=== PATIENT | female | born 1930 | race Caucasian/White ===

== ENCOUNTER 2016-09-14 09:45 | Outpatient (RCR) | payer OTHER ==
[~2016-09-14 09:45] MED LIST: ADVIL200 MG PO; ALEVE 220MG220 MG PO; ALIGN; ASPIRIN 81M81 MG/TA2 PO; BENICAR5 MG PO; BENTYL 10MG10 MG/CAP PO; CALCIUM500 MG PO; CARDI-OMEGA1000 MG PO; CEFPODOXIME PR100 MG PO; COZAAR 25MG25 MG/TAB PO; COZAAR 50MG50 MG/TAB PO; CRANBERRY1 CAP PO; DUO-KAPS1 CAP PO; ESTRACE0.1 MG/GM VG; EYE DROP TEARS15 ML OP; FISH OIL1000 MG PO; FLEXERIL 1010 MG/TAB PO; HCTZ12.5TAB PO; IMODIUM 2MG CAPS2 MG PO; LEXAPRO 10MG10 MG PO; METAMUCIL1 PDR PO; NATURE'S BLEND100 M2 PO; NITROSTAT0.4 MG/TAB SL; NORVASC2.5 MG PO; PRILOSEC 20MG20 MG PO; QUESTRAN4 GM/9 GM PO; STOOL SOFTENER100 M2 PO; SYNTHROID0.1 MG/TAB PO; SYSTANE 0.4%-0.1 SOL OP; TENORMIN 2525 MG/TAB PO; TYLENOL 325MG325 MG PO; VITAMIN B-6100 MG PO; ZOCOR 20MG20 MG PO; [UNRECOGNIZED DRUG - OTHER] NS
== END 2016-09-17 15:30 | disposition home or self-care (01) ==
LOC: MKS.ESL.PT 09:45
DX: M50.30 Other cervical disc degeneration, unspecified cervical region (principal); M62.830 Muscle spasm of back
CPT/HCPCS: G0283-GP; G8990-GP; G8991-GP; G8992-GP

== ENCOUNTER → 2016-12-20 | Outpatient (CLI) | payer MEDICARE | LOC: MC.RAD 12-14 09:20 | DX: Z12.31 Encounter for screening mammogram for malignant neoplasm of breast (principal) ==

== ENCOUNTER 2017-10-08 15:14 | Inpatient (IN) | payer OTHER ==
[~2017-10-08] VITALS: Ht 167.6 cm; Wt 72.0 kg
[~2017-10-08 15:14] MED LIST changes: +NORVASC 5MG5 MG/TAB PO; -NORVASC2.5 MG PO
[2017-10-08 15:46] LABS: BASO % 0.5 % (0.0-2.0); EOS # 0.1 (0.0-0.7); EOS % 1.5 % (0-4.0); GRAN # 5.8 (1.4-6.5); GRAN % 75.2 % (42.2-75.2); HEMATOCRIT 41.8 % (37.0-47.0); HEMOGLOBIN 14.4 g/dl (12.5-16.0); LYMPH # 1.1 (1.2-3.4); LYMPH % 14.1 % (20.0-51.0); MEAN CELL VOLUME 91 fl (80.0-100.0); MEAN CORPUSCULAR HEMOGLOBIN 31 pg (27.0-31.0); MEAN CORPUSCULAR HGB CONC 34 g/dl (33.0-37.0); MEAN PLATELET VOLUME 8.6 fl (7.4-10.4); MONO # 0.6 (0.1-0.6); MONO % 7.7 % (1.7-9.3); PLATELET COUNT 231 K/mm3 (130-400); RED BLOOD COUNT 4.59 M/mm3 (4.10-5.30); REDCELL DISTRIBUTION WIDTH-CV 13.3 % (11.5-14.5)
[2017-10-08 15:57] LABS: ALBUMIN 4.7 gm/dL (3.5-5.0); BILIRUBIN,TOTAL 0.4 mg/dL (0.0-1.0); CALCIUM 9.7 mg/dL (8.4-10.2); CREATININE, serum 0.8 mg/dL (0.52-1.25); POTASSIUM 4.3 mmol/L (3.4-5.0); TOTAL PROTEIN 7.4 gm/dL (6.4-8.2)
[2017-10-08] MEDS ORDERED: CRANBERRY450 MG PO (16:13)
[2017-10-08] MEDS ORDERED: TYLENOL 500MG500 MG PO (16:14)
[2017-10-08] MEDS ORDERED: MULTI VITAMINS1 TAB PO (16:14)
[2017-10-08] MEDS ORDERED: ADVIL200 MG PO (16:16)
[2017-10-08] MEDS ORDERED: LUTEIN20 M1 PO (16:17)
[2017-10-08] MEDS ORDERED: B-121000 MCG PO (16:18)
[2017-10-08] MEDS ORDERED: COZAAR 25MG25 MG/TAB PO (16:19)
[2017-10-08] MEDS ORDERED: REFRESH OPTIVE10 M2 OU (16:21)
[2017-10-08] MEDS ORDERED: FLAREX 5 ML5 M1 OU (16:21)
[2017-10-08 18:15] VITALS: BP 166/66; PULSE 65; TEMP 97.8
[2017-10-08 18:45] LABS: PROTHROMBIN TIME 11.6 SECONDS (9.7-12.8)
[2017-10-08 18:55] LABS: PRE ALBUMIN 38.5 mg/dL (17.6-36.0)
[2017-10-08 19:20] LABS: THYROID STIMULATING HORMONE 0.458 uIU/mL (0.465-4.680)
[2017-10-08 20:00] VITALS: BP 130/60; BP 144/79; PULSE 66; PULSE 84; TEMP 97.9; TEMP 99.7
[2017-10-08 22:44] LABS: COLLECTION METHOD CLEAN CATCH
[2017-10-08 22:50] LABS: MUCOUS Present /lpf; PH 5 (5-8); SQUAMOUS EPITHELIAL 0-2 /hpf; URINE APPEARANCE Hazy; URINE BACTERIA None Seen /hpf; URINE BILIRUBIN Negative (NEGATIVE); URINE BLOOD Negative (NEGATIVE); URINE COLOR Yellow; URINE GLUCOSE 3+ (NEGATIVE); URINE KETONE Negative (NEGATIVE); URINE LEUKOCYTE ESTERASE Trace (NEGATIVE); URINE NITRATE Negative (NEGATIVE); URINE PROTEIN(semi-quant) Negative (NEGATIVE); URINE UROBILINOGEN Negative (NEGATIVE)
[2017-10-09 00:25] VITALS: BP 136/69; PULSE 70; TEMP 98.1
[2017-10-09 05:00] VITALS: BP 98/41; PULSE 81; TEMP 98
[2017-10-09 08:00] VITALS: BP 115/50; PULSE 69; TEMP 98
[2017-10-09 13:28] VITALS: BP 97/40; PULSE 68; TEMP 98
[2017-10-09 17:30] VITALS: BP 108/43; PULSE 58; TEMP 98.4
[2017-10-09 22:14] VITALS: BP 115/46; PULSE 73; TEMP 99.4
[2017-10-10] VITALS (11 sets, daily range): BP systolic 97–138; BP diastolic 40–74; PULSE 65–79; TEMP 97.2–98.1
[2017-10-10 06:43] LABS: BASO % 0.5 % (0.0-2.0); EOS # 0.3 (0.0-0.7); EOS % 4.6 % (0-4.0); GRAN # 4.2 (1.4-6.5); GRAN % 69.3 % (42.2-75.2); LYMPH # 0.8 (1.2-3.4); LYMPH % 13.7 % (20.0-51.0); MEAN CELL VOLUME 92 fl (80.0-100.0); MEAN CORPUSCULAR HGB CONC 34 g/dl (33.0-37.0); MEAN PLATELET VOLUME 8.9 fl (7.4-10.4); MONO # 0.7 (0.1-0.6); MONO % 11.6 % (1.7-9.3); PLATELET COUNT 158 K/mm3 (130-400); RED BLOOD COUNT 3.23 M/mm3 (4.10-5.30); REDCELL DISTRIBUTION WIDTH-CV 14.1 % (11.5-14.5)
[2017-10-10 06:51] LABS: HEMATOCRIT 29.8 % (37.0-47.0); HEMOGLOBIN 10.1 g/dl (12.5-16.0); MEAN CORPUSCULAR HEMOGLOBIN 31 pg (27.0-31.0)
[2017-10-10 07:00] LABS: CALCIUM 8.1 mg/dL (8.4-10.2); CREATININE, serum 0.66 mg/dL (0.52-1.25); POTASSIUM 4.3 mmol/L (3.4-5.0)
[2017-10-11] VITALS (8 sets, daily range): BP systolic 125–166; BP diastolic 43–63; PULSE 67–78; TEMP 97.3–98.3
[2017-10-11 06:23] LABS: BASO % 0.2 % (0.0-2.0); GRAN # 8.9 (1.4-6.5); LYMPH # 0.4 (1.2-3.4); LYMPH % 4.1 % (20.0-51.0); MEAN CELL VOLUME 92 fl (80.0-100.0); MEAN CORPUSCULAR HGB CONC 34 g/dl (33.0-37.0); MEAN PLATELET VOLUME 8.7 fl (7.4-10.4); MONO # 0.6 (0.1-0.6); MONO % 6.1 % (1.7-9.3); PLATELET COUNT 144 K/mm3 (130-400); RED BLOOD COUNT 3.07 M/mm3 (4.10-5.30); REDCELL DISTRIBUTION WIDTH-CV 13.7 % (11.5-14.5)
[2017-10-11 06:28] LABS: HEMATOCRIT 28.3 % (37.0-47.0); HEMOGLOBIN 9.6 g/dl (12.5-16.0); MEAN CORPUSCULAR HEMOGLOBIN 31 pg (27.0-31.0)
[2017-10-11 06:30] LABS: CALCIUM 7.9 mg/dL (8.4-10.2); CREATININE, serum 0.58 mg/dL (0.52-1.25); POTASSIUM 4.3 mmol/L (3.4-5.0)
[2017-10-12 02:58] VITALS: BP 133/43; PULSE 79; TEMP 98.2
[2017-10-12 06:00] VITALS: BP 132/49; PULSE 70; TEMP 98
[2017-10-12 06:38] LABS: BASO % 0.4 % (0.0-2.0); EOS # 0.3 (0.0-0.7); EOS % 4.1 % (0-4.0); GRAN % 73.1 % (42.2-75.2); MEAN CELL VOLUME 93 fl (80.0-100.0); MEAN CORPUSCULAR HGB CONC 33 g/dl (33.0-37.0); MEAN PLATELET VOLUME 8.8 fl (7.4-10.4); MONO # 0.8 (0.1-0.6); PLATELET COUNT 160 K/mm3 (130-400); REDCELL DISTRIBUTION WIDTH-CV 14.1 % (11.5-14.5)
[2017-10-12 06:56] LABS: HEMATOCRIT 26.9 % (37.0-47.0); HEMOGLOBIN 8.9 g/dl (12.5-16.0); MEAN CORPUSCULAR HEMOGLOBIN 31 pg (27.0-31.0)
[2017-10-12 07:01] VITALS: BP 124/51; PULSE 67; TEMP 97.5
[2017-10-12 07:07] LABS: CALCIUM 8.3 mg/dL (8.4-10.2); CREATININE, serum 0.63 mg/dL (0.52-1.25); POTASSIUM 4.2 mmol/L (3.4-5.0)
[2017-10-12 09:00] VITALS: BP 115/46; PULSE 64
[2017-10-12 10:03] VITALS: BP 110/50; PULSE 74
[2017-10-12] MEDS ORDERED: CEFTIN 250250 MG/TAB PO (10:04)
[2017-10-12] MEDS ORDERED: NORCO 325 MG-101 TAB PO (10:05)
[2017-10-12] MEDS ORDERED: SYNTHROID0.088 MG/T PO (10:06)
[2017-10-12] MEDS ORDERED: ULTRAM 50MG TAB50 MG PO (10:06)
[2017-10-12] MEDS ORDERED: MIRALAX PA17 GM/Dose PO (10:08)
[2017-10-12 11:18] VITALS: BP 110/50; PULSE 74; TEMP 97.5
== END 2017-10-12 13:00 | DRG 493 ==
LOC: COL.ER 15:14 → SURG 16:39
PROVIDERS: Family Medicine; Nurse Practitioner Family; Orthopaedic Surgery; Physician Assistant
PROC: 0LS30ZZ Reposition Right Upper Arm Tendon, Open Approach (ICD-10-PCS; 2017-10-10)
PROC: 0PBF0ZZ Excision of Right Humeral Shaft, Open Approach (ICD-10-PCS; 2017-10-10)
PROC: 0PSF34Z Reposition Right Humeral Shaft with Internal Fixation Device, Percutaneous Approach (ICD-10-PCS; principal; 2017-10-10 12:00)
DX: M80.021A Age-related osteoporosis with current pathological fracture, right humerus, initial encounter for fracture (principal); K51.90 Ulcerative colitis, unspecified, without complications; N39.0 Urinary tract infection, site not specified; M80.051A Age-related osteoporosis with current pathological fracture, right femur, initial encounter for fracture; Z66 Do not resuscitate; I25.10 Atherosclerotic heart disease of native coronary artery without angina pectoris; W18.30XA Fall on same level, unspecified, initial encounter; I10 Essential (primary) hypertension; Z94.7 Corneal transplant status; D50.0 Iron deficiency anemia secondary to blood loss (chronic)
CPT/HCPCS: 99222-AI; 99231-AI; 99232-AI; 99239; A9284; J0690; J0696; J1100; J1650; J2250; J2270; J2405; J2704; J2795; J3010; J7030; Q4050

== ENCOUNTER → 2017-10-17 | Outpatient (REF) ==
[~2017-10-17] MED LIST changes: +B-121000 MCG PO; +CEFTIN 250250 MG/TAB PO; +CRANBERRY450 MG PO; +FLAREX 5 ML5 M1 OU; +LUTEIN20 M1 PO; +MIRALAX PA17 GM/Dose PO; +MULTI VITAMINS1 TAB PO; +NORCO 325 MG-101 TAB PO; +REFRESH OPTIVE10 M2 OU; +SYNTHROID0.088 MG/T PO; +TYLENOL 500MG500 MG PO; +ULTRAM 50MG TAB50 MG PO
[2017-10-17 11:35] LABS: BASO # 0.1 (0.0-0.2); BASO % 0.9 % (0.0-2.0); EOS # 0.3 (0.0-0.7); EOS % 3.8 % (0-4.0); GRAN # 4.7 (1.4-6.5); GRAN % 70.6 % (42.2-75.2); LYMPH # 0.8 (1.2-3.4); LYMPH % 12.6 % (20.0-51.0); MEAN CELL VOLUME 93 fl (80.0-100.0); MEAN CORPUSCULAR HGB CONC 33 g/dl (33.0-37.0); MEAN PLATELET VOLUME 8.5 fl (7.4-10.4); MONO # 0.8 (0.1-0.6); MONO % 11.5 % (1.7-9.3); PLATELET COUNT 326 K/mm3 (130-400); RED BLOOD COUNT 3.09 M/mm3 (4.10-5.30); REDCELL DISTRIBUTION WIDTH-CV 14.7 % (11.5-14.5)
[2017-10-17 11:36] LABS: HEMATOCRIT 28.8 % (37.0-47.0); HEMOGLOBIN 9.5 g/dl (12.5-16.0); MEAN CORPUSCULAR HEMOGLOBIN 31 pg (27.0-31.0)
== END ==
LOC: ZCOL.LAB 11:29
PROVIDERS: Internal Medicine
DX: K51.919 Ulcerative colitis, unspecified with unspecified complications (principal)

== ENCOUNTER → 2017-10-20 | Outpatient (REF) ==
[2017-10-20 12:41] LABS: COLLECTION METHOD CLEAN CATCH
[2017-10-20 12:51] LABS: PH 6 (5-8); SQUAMOUS EPITHELIAL None Seen /hpf; URINE APPEARANCE Clear; URINE BACTERIA None Seen /hpf; URINE BILIRUBIN Negative (NEGATIVE); URINE BLOOD Negative (NEGATIVE); URINE COLOR Yellow; URINE GLUCOSE Negative (NEGATIVE); URINE KETONE Negative (NEGATIVE); URINE LEUKOCYTE ESTERASE Negative (NEGATIVE); URINE NITRATE Negative (NEGATIVE); URINE PROTEIN(semi-quant) Negative (NEGATIVE); URINE RBC 0-2 /hpf; URINE UROBILINOGEN Negative (NEGATIVE); URINE WBC 0-2 /hpf
== END ==
LOC: ZCOL.LAB 12:36
PROVIDERS: Internal Medicine
DX: R30.0 Dysuria (principal)

== ENCOUNTER 2018-03-15 09:00 | Outpatient (RCR) | payer MEDICARE | END 2018-03-22 | disposition home or self-care (01) | LOC: MKS.ESL.PT | DX: S52.021D Displaced fracture of olecranon process without intraarticular extension of right ulna, subsequent encounter for closed fracture with routine healing (principal); M47.816 Spondylosis without myelopathy or radiculopathy, lumbar region | CPT/HCPCS: G8978-GP; G8979-GP; G8980-GP; G8984-GO; G8985-GO; G8986-GO; G8988-GO ==